=== PATIENT | male | born 1960 | race Caucasian/White ===

== ENCOUNTER 2019-03-02 13:44 | Outpatient (CLI) | payer MEDICARE, SELFPAY ==
[2019-03-02 14:33] LABS: Abs Immature Grans 0.01 k/cumm (0.0-0.09); Absolute Basophil Count 0.03 k/cumm (0.0-0.2); Absolute Lymphocyte Count 1.97 k/cumm (1.2-3.4); Absolute Monocyte Count 0.59 k/cumm (0.11-0.7); Absolute Neutrophil Count 2.99 k/cumm (1.2-6.7); Basophils % 0.5; Eosinophils % 3.5; HCT 45.7 % (40.0-50.0); HGB 15.9 g/dL (13.5-17.5); Immature Grans % 0.2; Mean Corp. HGB Concentration 34.8 g/dL (32.0-36.0); Mean Corpuscular Hemoglobin 31.4 pg (27.0-33.0); Mean Corpuscular Volume 90.3 fL (80-95); Mean Platelet Volume 9.7 fL (8.0-11.0); Monocytes % 10.2; Neutrophils % 51.6; Platelet Count 155 x1000/uL (130-400); RBC 5.06 m/cumm (4.50-6.00); RBC Distribution Width 13.1 % (11.8-14.1); White Blood Cell Count 5.79 k/cumm (4.4-10.8)
[2019-03-02 14:48] LABS: INR 1.1 (0.9-1.1); Prothrombin Time 10.7 sec (9.3-11.0)
[2019-03-02 16:11] LABS: ALT 55 U/L (16-63); AST 23 U/L (15-37); Albumin 3.8 g/dL (3.4-5.0); Alkaline Phosphatase 132 U/L (46-116); Anion Gap 8.1 mmol/L (3-11); BUN 16 mg/dL (7-18); Bilirubin, Direct 0.22 mg/dL (0.00-0.20); Bilirubin, Total 0.8 mg/dL (0.2-1.0); CO2 26.9 mmol/L (21.0-32.0); CREATININE 1.01 mg/dL (0.70-1.30); Calcium 8.9 mg/dL (8.5-10.1); Chloride 105 mmol/L (98-107); Glucose 148 mg/dL (70-100); Potassium 4.8 mmol/L (3.5-5.1); Sodium 140 mmol/L (136-145); Total Protein 7.1 g/dL (6.4-8.2)
[2019-03-03 12:20] LABS: Tacrolimus 10.8 ng/ml
== END 2019-03-02 14:04 ==
DX: Z94.4 Liver transplant status (principal); Z51.81 Encounter for therapeutic drug level monitoring
CPT/HCPCS: 36415; 80053; 80197; 82248; 85025; 85610

== ENCOUNTER 2019-04-14 09:14 | Outpatient (CLI) | payer MEDICARE, SELFPAY ==
[2019-04-14 10:08] LABS: Abs Immature Grans 0.03 k/cumm (0.0-0.09); Absolute Basophil Count 0.03 k/cumm (0.0-0.2); Absolute Eosinophil Count 0.22 k/cumm (0.0-0.7); Absolute Lymphocyte Count 2.74 k/cumm (1.2-3.4); Absolute Monocyte Count 0.74 k/cumm (0.11-0.7); Absolute Neutrophil Count 4.13 k/cumm (1.2-6.7); Basophils % 0.4; Eosinophils % 2.8; HCT 52.9 % (40.0-50.0); HGB 17.7 g/dL (13.5-17.5); Immature Grans % 0.4; Lymphocytes % 34.7; Mean Corp. HGB Concentration 33.5 g/dL (32.0-36.0); Mean Corpuscular Hemoglobin 30.7 pg (27.0-33.0); Mean Corpuscular Volume 91.7 fL (80-95); Mean Platelet Volume 10.5 fL (8.0-11.0); Monocytes % 9.4; Neutrophils % 52.3; Platelet Count 163 x1000/uL (130-400); RBC 5.77 m/cumm (4.50-6.00); RBC Distribution Width 13.1 % (11.8-14.1); White Blood Cell Count 7.89 k/cumm (4.4-10.8)
[2019-04-14 10:26] LABS: INR 1.1 (0.9-1.1); Prothrombin Time 10.6 sec (9.3-11.0)
[2019-04-14 10:40] LABS: ALT 54 U/L (16-63); AST 20 U/L (15-37); Albumin 4.2 g/dL (3.4-5.0); Alkaline Phosphatase 121 U/L (46-116); Anion Gap 8.8 mmol/L (3-11); BUN 13 mg/dL (7-18); Bilirubin, Total 0.8 mg/dL (0.2-1.0); CO2 30.2 mmol/L (21.0-32.0); CREATININE 0.98 mg/dL (0.70-1.30); Calcium 9.3 mg/dL (8.5-10.1); Chloride 103 mmol/L (98-107); Glucose 158 mg/dL (70-100); Potassium 4.5 mmol/L (3.5-5.1); Sodium 142 mmol/L (136-145); Total Protein 7.7 g/dL (6.4-8.2)
[2019-04-14 10:48] LABS: Hemoglobin A1C 6.7 % (4.5-6.2)
[2019-04-18 07:36] LABS: Tacrolimus 5.8 ng/mL (See Note)
== END 2019-04-14 09:34 ==
PROVIDERS: PCP Family Medicine; Visit Provider Internal Medicine Gastroenterology
DX: E11.9 Type 2 diabetes mellitus without complications (principal); Z94.4 Liver transplant status; Z51.81 Encounter for therapeutic drug level monitoring; Z79.01 Long term (current) use of anticoagulants
CPT/HCPCS: 36415; 80053; 80197; 82248; 83036; 85025; 85610

== ENCOUNTER 2019-04-27 11:56 | Outpatient (CLI) | payer MEDICARE, SELFPAY ==
--- NOTE | 2019-04-27 10:45 | DI.RAD_ITS ---
EXAM: XR CHEST 2V PA LATERAL INDICATION: Dyspnea, cough and crackles on exam, R05. COMPARISON: CHEST 2 VIEWS PA,LAT from 12/26/2009 TECHNIQUE: 2D digital imaging was performed. FINDINGS: The heart size and pulmonary vasculature are stable and within normal limits. The lungs are free of infiltrates, effusions or pneumothoraces. The bones are intact. IMPRESSION: No acute pulmonary process.
== END 2019-04-27 12:16 ==
PROVIDERS: PCP Family Medicine; Visit Provider Family Medicine
DX: R05 Cough (principal); R06.09 Other forms of dyspnea
CPT/HCPCS: 71046

== ENCOUNTER 2019-05-11 01:41 | Outpatient (CLI) | payer MEDICARE, SELFPAY ==
--- NOTE | 2019-05-11 08:23 | DI.CTLCSR_ITS ---
EXAM: CT CHEST LUNG CANCER SCREEN CLINICAL HISTORY: Screening for lung cancer F17.210 NICOTINE DEPENDENCE TECHNIQUE: Low-dose noncontrast screening technique. COMPARISON: ABD PELVIS WITH CONTRAST from 12/31/2009 XR CHEST 2V PA LATERAL from 04/27/2019 XR CHEST 2V PA LATERAL from 04/27/2019 FINDINGS: Heart size is normal. Coronary artery and aortic calcifications are seen. The aorta is normal in d iameter. There are no pleural or pericardial effusions or evidence of adenopathy. There is bilater al gynecomastia. No pulmonary nodules are seen. There is no bronchiectasis or evidence of infiltrat e. Degenerative changes are seen in the spine. IMPRESSION: Lung rads category 1, negative. Annual low-dose screening CT is recommended.
== END 2019-05-11 02:01 ==
PROVIDERS: PCP Family Medicine; Visit Provider Family Medicine
DX: Z12.2 Encounter for screening for malignant neoplasm of respiratory organs (principal); F17.210 Nicotine dependence, cigarettes, uncomplicated
CPT/HCPCS: G0297

== ENCOUNTER → 2019-05-24 12:30 | Outpatient (BNVA) | payer MEDICARE, SELFPAY | PROVIDERS: PCP Family Medicine; Referring Provider Family Medicine; Visit Provider Nurse Practitioner Gerontology | DX: N48.6 Induration penis plastica (principal); N40.1 Benign prostatic hyperplasia with lower urinary tract symptoms; N13.8 Other obstructive and reflux uropathy; E11.9 Type 2 diabetes mellitus without complications; Z79.84 Long term (current) use of oral hypoglycemic drugs | CPT/HCPCS: 99204 ==

== ENCOUNTER 2019-06-09 08:39 | Outpatient (CLI) | payer MEDICARE, SELFPAY ==
[2019-06-09 09:20] LABS: Abs Immature Grans 0.02 k/cumm (0.0-0.09); Absolute Basophil Count 0.03 k/cumm (0.0-0.2); Absolute Eosinophil Count 0.26 k/cumm (0.0-0.7); Absolute Lymphocyte Count 2.57 k/cumm (1.2-3.4); Absolute Monocyte Count 0.78 k/cumm (0.11-0.7); Absolute Neutrophil Count 2.96 k/cumm (1.2-6.7); Basophils % 0.5; Eosinophils % 3.9; HCT 51.4 % (40.0-50.0); HGB 17.1 g/dL (13.5-17.5); Immature Grans % 0.3 %; Lymphocytes % 38.8; Mean Corp. HGB Concentration 33.3 g/dL (32.0-36.0); Mean Corpuscular Hemoglobin 30.3 pg (27.0-33.0); Monocytes % 11.8; Neutrophils % 44.7; Platelet Count 178 x1000/uL (130-400); RBC 5.65 m/cumm (4.50-6.00); RBC Distribution Width 13.1 % (11.8-14.1); White Blood Cell Count 6.62 k/cumm (4.4-10.8)
[2019-06-09 09:36] LABS: ALT 65 U/L (16-63); AST 24 U/L (15-37); Albumin 3.9 g/dL (3.4-5.0); Alkaline Phosphatase 110 U/L (46-116); Anion Gap 7.9 mmol/L (3-11); BUN 19 mg/dL (7-18); Bilirubin, Total 1.2 mg/dL (0.2-1.0); CO2 28.1 mmol/L (21.0-32.0); CREATININE 0.92 mg/dL (0.70-1.30); Chloride 104 mmol/L (98-107); Glucose 203 mg/dL (74-106); Potassium 4.2 mmol/L (3.5-5.1); Sodium 140 mmol/L (136-145); Total Protein 7.7 g/dL (6.4-8.2)
[2019-06-09 09:37] LABS: Prothrombin Time 10.4 sec (9.3-11.0)
[2019-06-12 16:56] LABS: Free Retinol (Vitamin A) 57.5 mcg/dL (32.5-78.0)
== END 2019-06-09 08:59 ==
PROVIDERS: PCP Family Medicine; Visit Provider Internal Medicine
DX: Z94.4 Liver transplant status (principal); Z51.81 Encounter for therapeutic drug level monitoring
CPT/HCPCS: 36415; 80053; 80197; 84590; 85025; 85610